=== PATIENT | male | born 1945 | race Native Hawaiian/Other Pacific Islander ===

== ENCOUNTER 2020-10-25 09:06 | Outpatient (CLI) | payer OTHER, MEDICARE | END 2020-10-25 22:15 | disposition home or self-care (01) | LOC: RAD 09:06 | PROVIDERS: ATTEND Internal Medicine Sleep Medicine | DX: R06.02 Shortness of breath (principal) ==

== ENCOUNTER 2020-11-26 08:33 | Outpatient (CLI) | payer OTHER, MEDICARE | END 2020-11-26 21:25 | disposition home or self-care (01) | LOC: RESP 08:33 | PROVIDERS: ATTEND Internal Medicine Sleep Medicine | DX: J44.9 Chronic obstructive pulmonary disease, unspecified (principal) ==